=== PATIENT | female | born 1990 | race Caucasian/White ===

== ENCOUNTER 2017-08-28 07:49 | Emergency (ER) | payer OTHER ==
[~2017-08-28] VITALS: Ht 160 cm; Wt 72.6 kg
--- NOTE | 2017-08-28 08:03 | Emergency Room Report ---
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 N Clinical Suspician of Infection? N Mental Status: 1 - Regular (Normal Baseline) Sepsis Risk:Low Sepsis Risk Have you (or family members/close friends) recently traveled outside the [place]? N If Yes, where/when: Have you had exposure to infectious disease within the past month? TB? Other? Specify: Comment The patient complains of LEFT sided pleuritic chest pain. She says that on Sunday she woke up with a soreness in her LEFT neck and trapezius area which has now progressed to pain in her inframammary and periscapular area on that side, increasing with a deep breath. Her neck pain has resolved. She denies cough or fever. No hemoptysis or sputum production. She had LEFT calf pain last week for about 5 days which is now resolved. No swelling. She is on control pills, no other medications. No recent surgery, hospitalization, or travel. She has taken low dose aspirin and ibuprofen, which seemed to help some. ALLERGIES Coded Allergies: No Known Allergies (08/28/17) Home Medications Reported Medications NORETHINDRONE-E.ESTRADIOL-IRON ([place]arrison Fe 1-20 Tablet) 1 TAB PO DAILY #28 History Medical History General Hypertension? No More? 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 Social History Smoking Hx Smoker: Never Smoker Tobacco: No Type N/A Are you/the child exposed to second-hand smoke: No Alcohol Alcohol: No Review of Systems All Other Systems Reviewed and Negative Constitutional denies fever Respiratory denies cough Cardiovascular chest pain Musculoskeletal see HPI Physical Exam Vital Signs Vital Signs Date Time Temp Pulse Resp B/P Pulse O2 O2 Flow FiO2 Ox Delivery Rate 08/28 0756 97.1 96 16 151/71 97 General Appearance normal appearance, WD/WN Eye Exam - bilateral eye normal exam, bilateral eye PERRL, bilateral eye EOMI Ear, Nose, Throat hearing grossly normal, normal ENT inspection Neck normal inspection, non-tender, supple, full range of motion Respiratory Status Yes: trachea midline, chest symmetrical, non tender chest. No: respiratory distress. Lung Sounds bilateral: normal breath sounds, lungs clear. Cardiovascular normal exam, regular rate/rhythm, no peripheral edema, no gallop, no JVD, no murmur, no rub, normal peripheral pulses Peripheral Pulses Pulses normal Yes Gastrointestinal normal bowel sounds, normal exam, non tender, soft, no organomegaly Extremities non-tender, normal range of motion, normal inspection, no calf tenderness, no pedal edema Neurologic alert, normal exam, oriented x 3 Mental status normal mood/affect Skin intact, normal color, warm/dry Medical Decision Making LABS/Meds/Orders Pt receiving controlled substance in ED? No Results/Orders Laboratory Tests 08/28/17 0820: Sodium 139, Potassium 4.0, Chloride 105, Carbon Dioxide 24, BUN 7, Creatinine 0.7, Estimated Creat Clear 137, Estimated GFR (MDRD) 100, Glucose 96, Calcium 8.6, Total Bilirubin 0.6, AST 28, ALT 32, Alkaline Phosphatase 65, Troponin I < 0.02, Total Protein 7.4, Albumin 3.1 L, Globulin 4.3 H, Albumin/Globulin Ratio 0.7 L, D-Dimer 2080 *H, WBC 12.9 H, RBC 4.21, Hgb 12.6, Hct 37.7, MCV 89.6, RDW 12.6, Plt Count 283, MPV 8.3, Gran % 75.6, Gran # 9.7 H, Lymphocytes % 18.6 , Monocytes % 4.1, Eosinophils % 1.4, Basophils % 0.3, Lymphocytes # 2.4, Monocytes # 0.5, Eosinophils # 0.2, Basophils # 0.0, PUBS MCHC 33.4, MCH 29.9 Current Medication Orders Sig/Debbie Start time Last Medication Dose Route Stop Time Status Admin Iopamidol 75 ML ONCE ONE 08/28 915 DC 08/28 IV 08/28 Sodium Chloride 10 ML ONCE ONE 08/28 915 DC 08/28 IV 08/28 916 0912 Sodium Chloride 10 ML PRN PRN 08/28 08 AC IV 08/29 08 Orders Procedure Date/time Status DIET-NOTHING BY MOUTH 08/[address] CHEST W/PE PROTOCOL REQ 08/28 837 Active VENOUS LOWER EXT LT 08/28 836 Active SERUM , QUAL 08/28 834 Complete ELECTROCARDIOGRAM REQUEST 08/28 800 Active IV SALINE LOCK 08/28 800 Active URINALYSIS/COMPLETE 08/28 800 Active TROPONIN I 08/28 800 Complete D-DIMER 08/28 800 Complete CBC WITH AUTO DIFF 08/28 800 Complete CHEM 12 PROFILE 08/28 800 Complete CM/EKG CM/EKG Comments EKG interpreted by Mert Mattson MD: Rhythm: sinus Rate: 85 Mccloud: normal Ectopy: none Conduction: normal ST Segment Changes: none T Wave Changes: none Q Waves: none No evidence of acute ischemia or injury XRAY/CT/US XRAY/CT/US XRAY chest Comment X-ray interpreted by Mert Mattson M.D.: Mild airspace disease LEFT base CT chest Comment CT scan interpreted by radiologist: Negative for pulmonary embolism. Atelectasis LEFT base with trace pleural fluid. Ultrasound lower extremity Comment As per [facility] procedure, ultrasound report received from data acquisition technician: Negative for DVT Departure Departure Disposition DC Home or Self Care(routine) Clinical Impression Primary Impression: Pleurisy with effusion Condition STABLE Patient Instructions DI for Pleurisy Additional Instructions Continue ibuprofen, 600 mg every 6-8 hours. Follow-up with your primary care provider, call today to arrange follow-up appointment in 2-3 days. ED Critical Care Critical Care No
--- NOTE | 2017-08-28 08:03 | Emergency Room Report ---
History of Present Illness Time Seen by MD Simental Presenting Problem in Triage Pt arrived:Walked Presenting Problem:PT STATES SHE BEGAN BY HAVING LEG PAIN IN HER LEFT LEG FOR APPROX 4-5 DAYS AND NOW HAS HAD LEFT SIDE PAIN WITH INSPIRATION SINCE YESTERDAY MORNING PT FURTHER STATES SHE IS SEDENTARY FOR THE MOST PART DUE TO HER 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 N Clinical Suspician of Infection? N Mental Status: 1 - Regular (Normal Baseline) Sepsis Risk:Low Sepsis Risk Have you (or family members/close friends) recently traveled outside the [place]? N If Yes, where/when: Have you had exposure to infectious disease within the past month? TB? Other? Specify: Comment The patient complains of LEFT sided pleuritic chest pain. She says that on Sunday she woke up with a soreness in her LEFT neck and trapezius area which has now progressed to pain in her inframammary and periscapular area on that side, increasing with a deep breath. Her neck pain has resolved. She denies cough or fever. No hemoptysis or sputum production. She had LEFT calf pain last week for about 5 days which is now resolved. No swelling. She is on control pills, no other medications. No recent surgery, hospitalization, or travel. She has taken low dose aspirin and ibuprofen, which seemed to help some. ALLERGIES Coded Allergies: No Known Allergies (08/28/17) Home Medications Reported Medications NORETHINDRONE-E.ESTRADIOL-IRON ([place]arrison Fe 1-20 Tablet) 1 TAB PO DAILY #28 History Medical History General Hypertension? No More? 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 Social History Smoking Hx Smoker: Never Smoker Tobacco: No Type N/A Are you/the child exposed to second-hand smoke: No Alcohol Alcohol: No Review of Systems All Other Systems Reviewed and Negative Constitutional denies fever Respiratory denies cough Cardiovascular chest pain Musculoskeletal see HPI Physical Exam Vital Signs Vital Signs Date Time Temp Pulse Resp B/P Pulse O2 O2 Flow FiO2 Ox Delivery Rate 08/28 0756 97.1 96 16 151/71 97 General Appearance normal appearance, WD/WN Eye Exam - bilateral eye normal exam, bilateral eye PERRL, bilateral eye EOMI Ear, Nose, Throat hearing grossly normal, normal ENT inspection Neck normal inspection, non-tender, supple, full range of motion Respiratory Status Yes: trachea midline, chest symmetrical, non tender chest. No: respiratory distress. Lung Sounds bilateral: normal breath sounds, lungs clear. Cardiovascular normal exam, regular rate/rhythm, no peripheral edema, no gallop, no JVD, no murmur, no rub, normal peripheral pulses Peripheral Pulses Pulses normal Yes Gastrointestinal normal bowel sounds, normal exam, non tender, soft, no organomegaly Extremities non-tender, normal range of motion, normal inspection, no calf tenderness, no pedal edema Neurologic alert, normal exam, oriented x 3 Mental status normal mood/affect Skin intact, normal color, warm/dry Medical Decision Making LABS/Meds/Orders Pt receiving controlled substance in ED? No Results/Orders Laboratory Tests 08/28/17 0820: Sodium 139, Potassium 4.0, Chloride 105, Carbon Dioxide 24, BUN 7, Creatinine 0.7, Estimated Creat Clear 137, Estimated GFR (MDRD) 100, Glucose 96, Calcium 8.6, Total Bilirubin 0.6, AST 28, ALT 32, Alkaline Phosphatase 65, Troponin I < 0.02, Total Protein 7.4, Albumin 3.1 L, Globulin 4.3 H, Albumin/Globulin Ratio 0.7 L, D-Dimer 2080 *H, WBC 12.9 H, RBC 4.21, Hgb 12.6, Hct 37.7, MCV 89.6, RDW 12.6, Plt Count 283, MPV 8.3, Gran % 75.6, Gran # 9.7 H, Lymphocytes % 18.6 , Monocytes % 4.1, Eosinophils % 1.4, Basophils % 0.3, Lymphocytes # 2.4, Monocytes # 0.5, Eosinophils # 0.2, Basophils # 0.0, PUBS MCHC 33.4, MCH 29.9 Current Medication Orders Sig/Debbie Start time Last Medication Dose Route Stop Time Status Admin Iopamidol 75 ML ONCE ONE 08/28 915 DC 08/28 IV 08/28 Sodium Chloride 10 ML ONCE ONE 08/28 915 DC 08/28 IV 08/28 916 0912 Sodium Chloride 10 ML PRN PRN 08/28 08 AC IV 08/29 08 Orders Procedure Date/time Status DIET-NOTHING BY MOUTH 08/[address] CHEST W/PE PROTOCOL REQ 08/28 837 Active VENOUS LOWER EXT LT 08/28 836 Active SERUM , QUAL 08/28 834 Complete ELECTROCARDIOGRAM REQUEST 08/28 800 Active IV SALINE LOCK 08/28 800 Active URINALYSIS/COMPLETE 08/28 800 Active TROPONIN I 08/28 800 Complete D-DIMER 08/28 800 Complete CBC WITH AUTO DIFF 08/28 800 Complete CHEM 12 PROFILE 08/28 800 Complete CM/EKG CM/EKG Comments EKG interpreted by Mert Mattson MD: Rhythm: sinus Rate: 85 Jones: normal Ectopy: none Conduction: normal ST Segment Changes: none T Wave Changes: none Q Waves: none No evidence of acute ischemia or injury XRAY/CT/US XRAY/CT/US XRAY chest Comment X-ray interpreted by Mert Mattson M.D.: Mild airspace disease LEFT base CT chest Comment CT scan interpreted by radiologist: Negative for pulmonary embolism. Atelectasis LEFT base with trace pleural fluid. Ultrasound lower extremity Comment As per [facility] procedure, ultrasound report received from manufacturing process technician: Negative for DVT Departure Departure Disposition DC Home or Self Care(routine) Clinical Impression Primary Impression: Pleurisy with effusion Condition STABLE Patient Instructions DI for Pleurisy Additional Instructions Continue ibuprofen, 600 mg every 6-8 hours. Follow-up with your primary care provider, call today to arrange follow-up appointment in 2-3 days. ED Critical Care Critical Care No
[2017-08-28] MEDS ORDERED: LARIN FE PO (08:19)
--- OUTSIDE RECORDS SUMMARY | 2017-08-28 08:19 | External Medical Summary Rpt | CCD ---
Demographics Home Phone Preferred Language Scottish Marital Status Unknown Nondenominational Affiliation Unknown Race Unknown Ethnic Group Unknown Author Author KATEY Address Unknown Phone [email or web address] Purpose Continuity of Care Document - 03-31-2014 through 2016
--- OUTSIDE RECORDS SUMMARY | 2017-08-28 08:19 | External Medical Summary Rpt | CCD ---
Author Author [employer] Organization [employer] Address Unknown Phone Unavailable Purpose Continuity of Care Document - through 2016
--- OUTSIDE RECORDS SUMMARY | 2017-08-28 08:19 | External Medical Summary Rpt | CCD ---
Demographics Preferred Language Yoruba Marital Status Unknown Quaker Affiliation Unknown Race Unknown Ethnic Group Unknown Author Author , KATEY DEL TORO Address Unknown Phone Immunization No patient found.
--- OUTSIDE RECORDS SUMMARY | 2017-08-28 08:19 | External Medical Summary Rpt | CCD ---
Demographics Preferred Language Urdu Marital Status Unknown Taoism Affiliation Unknown Race Unknown Ethnic Group Unknown Author Author , KATEY DEL TORO Address Unknown Phone Immunization No patient found.
--- OUTSIDE RECORDS SUMMARY | 2017-08-28 08:19 | External Medical Summary Rpt | CCD ---
Demographics Home Phone Preferred Language Libyan Marital Status Unknown Cheondoism Affiliation Unknown Race Unknown Ethnic Group Unknown Author Author KATEY Address Unknown Phone [email or web address] Purpose Continuity of Care Document - 03-31-2014 through 2016
--- OUTSIDE RECORDS SUMMARY | 2017-08-28 08:20 | External Medical Summary Rpt ---
Author Author [employer] Ha[employer], [employer] Organization [employer] Address Unknown Phone Unavailable Results Gluc 2Hr Observa Value Referen Units Interpr Notes Date ti ce etation Range Gluc 2 90 No mg/dL No Referen Jun 01 Hour informa informa 2013 tion in tion in Range:\ 3:33 PM source source .br\\.b data data r\ Pregnan t (IADPSG /ADA)\. br\< 153 mg/dL\. br\\.br \Non-pr egnant\ .br\ < 140 mg/dL Normal\ .br\140 - 199 mg/dL Impaire d Glucose Toleran ce\.br\ >= 200 mg/dL Suggest tameka of Diabete s Gluc 1Hr Observa Value Referen Units Interpr Notes Date ti ce etation Range Gluc 1 143 No mg/dL No Referen Jun 01 Hour informa informa ce 2013 tion in tion in Range:\ 3:49 PM source source .br\\.b data data r\Pregn ant (IADPSG /ADA)\. br\ < 180 mg/dL\. br\\.br \Non-pr egnant\ .br\ N/A Gluc Base Observa Value Referen Units Interpr Notes Date ti ce etation Range Gluc 76 74 - mg/dL No Referen Jun 01 Baselin 100 informa ce 2013 e tion in Range:\ 12:23 source .br\\.b PM data r\Pregn ant (IADPSG /ADA)\. br\ < 92 mg/dL\. br\\.br \Non-pr egnant\ .br\ < 100 mg/dL Normal\ .br\110 - 125 mg/dL Impaire d Fasting Glucose \.br\ >= 126 mg/dL Suggest tame[place] of Diabete s Auto Diff Observa Value Referen Units Interpr Notes Date ti ce etation Range Neutrop 71.4 No % No No Apr 10 hils informa informa informa 2013 [#/volu tion in tion in tion in 6:30 AM me] in source source source Blood data data data by Automat ed count Lymphoc 19.7 No % No No Naseem 10 ytes informa informa informa 2013 [#/volu tion in tion in tion in 6:30 AM me] in source source source Blood data data data by Automat ed count Monocyt 6.9 No % No No Naseem 10 es informa informa informa 2013 [#/volu tion in tion in tion in 6:30 AM me] in source source source Blood data data data by Automat ed count Eos 1.2 No % No No Naseem 10 Percent informa informa informa 2013 tion in tion in tion in 6:30 AM source source source data data data Baso 0.8 No % No No Naseem 10 Percent informa informa informa 2013 tion in tion in tion in 6:30 AM source source source data data data Neut# 7.5 1.8 - x10(3)/ No No Naseem 10 7.7 mcL informa informa 2013 tion in tion in 6:30 AM source source data data Lymph# 2.1 0.6 - x10(3)/ No No Naseem 10 4.8 mcL informa informa 2013 tion in tion in 6:30 AM source source data data [place]# 0.7 0.0 - x10(3)/ No No Naseem 10 1.3 mcL informa informa 2013 tion in tion in 6:30 AM source source data data Eos# 0.1 0.0 - x10(3)/ No No Naseem 10 0.5 mcL informa informa 2013 tion in tion in 6:30 AM source source data data Baso# 0.1 0.0 - x10(3)/ No No Naseem 10 0.2 mcL informa informa 2013 tion in tion in 6:30 AM source source data data CBC Observa Value Referen Units Interpr Notes Date tion ce etation Range LEUKOCY 10.5 4.0 - x10(3)/ No No Naseem 10 CARLOS 11.0 mcL informa informa 2013 tion in tion in 6:30 AM source source data data Erythro 4.13 3.80 - x10(6)/ No No Naseem 10 cytes 5.10 mcL informa informa 2013 [#/volu tion in tion in 6:30 AM me] in source source Blood data data by Automat ed count Hemoglo 12.7 12.0 - gm/dL No No Apr 21 bin 15.6 informa informa 2014 [Mass/v tion in tion in 6:30 AM olume] source source in data data Blood Hematoc 37.3 35.7 - % No No Apr 21 rit 45.9 informa informa 2014 [Volume tion in tion in 6:30 AM source source Fractio data data n] of Blood by Automat ed count Erythro 90.4 82.5 - fL No No Apr 21 cyte 99.8 informa informa 2014 mean tion in tion in 6:30 AM corpusc source source ular data data volume [Entiti c volume] by Automat ed count Erythro 30.7 27.0 - pg No No Apr 21 cyte 34.3 informa informa 2014 mean tion in tion in 6:30 AM corpusc source source ular data data hemoglo bin [Entiti c mass] by Automat ed count Erythro 33.9 32.1 - gm/dL No No Apr 21 cyte 35.3 informa informa 2014 mean tion in tion in 6:30 AM corpusc source source ular data data hemoglo bin concent ration [Mass/v olume] by Automat ed count Erythro 13.9 11.5 - % No No Apr 21 cyte 15.0 informa informa 2014 distrib tion in tion in 6:30 AM ution source source width data data [Ratio] by Automat ed count Platele 191 144 - x10(3)/ No No Apr 21 ts 423 mcL informa informa 2013 [#/volu tion in tion in 6:30 AM me] in source source Blood data data by Automat ed count MPV 9.5 6.8 - fL No No Apr 21 10.8 informa informa 2014 tion in tion in 6:30 AM source source data data ABSC IgG Observa Value Referen Units Interpr Notes Date tion ce etation Range ABSC Negativ No No No No Apr 20 IgG Int e informa informa informa informa 2014 tion in tion in tion in tion in 8:19 AM source source source source data data data data ABORh Observa Value Referen Units Interpr Notes Date tion ce etation Range ABORh A POS No No No No Apr 9 Int informa informa informa informa 2014 tion in tion in tion in tion in 8:19 AM source source source source data data data data BMP Observa Value Referen Units Interpr Notes Date tion ce etation Range Sodium 137 136 - mmol/L No No Apr 20 145 informa informa 2013 tion in tion in 7:51 AM source source data data Potassi 3.8 3.5 - mmol/L No No Apr 20 um 5.0 informa informa 2013 [Moles/ tion in tion in 7:51 AM volume] source source in data data Serum or Plasma Chlorid 106 98 - mmol/L No No Apr 20 e 107 informa informa 2013 tion in tion in 7:51 AM source source data data Carbon 21 22 - 29 mmol/L Low No Apr 20 dioxide informa 2014 , total tion in 7:51 AM source [Moles/ data volume] in Serum or Plasma Anion 10 7 - 16 mmol/L No No Apr 9 Gap informa informa 2013 tion in tion in 7:51 AM source source data data CALCIUM 8.9 8.6 - mg/dL No No Apr 20 .TOTAL 10.2 informa informa 2013 tion in tion in 7:51 AM source source data data Glucose 79 74 - mg/dL No No Apr 20 Lvl 100 informa informa 2013 tion in tion in 7:51 AM source source data data BUN 6 6 - 20 mg/dL No No Apr 9 informa informa 2013 tion in tion in 7:51 AM source source data data Creatin 0.68 0.51 - mg/dL No No Apr 20 ine 1.00 informa informa 2013 tion in tion in 7:51 AM source source data data Auto Diff Observa Value Referen Units Interpr Notes Date tion ce etation Range Neutrop 75.6 No % No No Apr 9 hils informa informa informa 2013 [#/volu tion in tion in tion in 7:31 AM me] in source source source Blood data data data by Automat ed count Lymphoc 17.3 No % No No Naseem 9 ytes informa informa informa 2013 [#/volu tion in tion in tion in 7:31 AM me] in source source source Blood data data data by Automat ed count Monocyt 6.0 No % No No Naseem 9 es informa informa informa 2013 [#/volu tion in tion in tion in 7:31 AM me] in source source source Blood data data data by Automat ed count Eos 0.6 No % No No Naseem 9 Percent informa informa informa 2014 tion in tion in tion in 7:31 AM source source source data data data Baso 0.5 No % No No Naseem 9 Percent informa informa informa 2013 tion in tion in tion in 7:31 AM source source source data data data Neut# 7.6 1.8 - x10(3)/ No No Naseem 9 7.7 mcL informa informa 2013 tion in tion in 7:31 AM source source data data Lymph# 1.7 0.6 - x10(3)/ No No Naseem 9 4.8 mcL informa informa 2013 tion in tion in 7:31 AM source source data data [place]# 0.6 0.0 - x10(3)/ No No Naseem 9 1.3 mcL informa informa 2013 tion in tion in 7:31 AM source source data data Eos# 0.1 0.0 - x10(3)/ No No Naseem 9 0.5 mcL informa informa 2013 tion in tion in 7:31 AM source source data data Baso# 0.0 0.0 - x10(3)/ No No Naseem 9 0.2 mcL informa informa 2013 tion in tion in 7:31 AM source source data data CBC Observa Value Referen Units Interpr Notes Date tion ce etation Range LEUKOCY 10.0 4.0 - x10(3)/ No No Naseem 9 CARLOS 11.0 mcL informa informa 2013 tion in tion in 7:31 AM source source data data Erythro 3.71 3.80 - x10(6)/ Low No Naseem 9 cytes 5.10 mcL informa 2013 [#/volu tion in 7:31 AM me] in source Blood data by Automat ed count Hemoglo 11.4 12.0 - gm/dL Low No Naseem 9 bin 15.6 informa 2014 [Mass/v tion in 7:31 AM olume] source in data Blood Hematoc 33.5 35.7 - % Low No Naseem 9 rit 45.9 informa 2014 [Volume tion in 7:31 AM source Fractio data n] of Blood by Automat ed count Erythro 90.3 82.5 - fL No No Apr 9 cyte 99.8 informa informa 2014 mean tion in tion in 7:31 AM corpusc source source ular data data volume [Entiti c volume] by Automat ed count Erythro 30.7 27.0 - pg No No Apr 20 cyte 34.3 informa informa 2014 mean tion in tion in 7:31 AM corpusc source source ular data data hemoglo bin [Entiti c mass] by Automat ed count Erythro 34.0 32.1 - gm/dL No No Apr 20 cyte 35.3 informa informa 2014 mean tion in tion in 7:31 AM corpusc source source ular data data hemoglo bin concent ration [Mass/v olume] by Automat ed count Erythro 13.9 11.5 - % No No Apr 20 cyte 15.0 informa informa 2014 distrib tion in tion in 7:31 AM ution source source width data data [Ratio] by Automat ed count Platele 186 144 - x10(3)/ No No Naseem 9 ts 423 mcL informa informa 2014 [#/volu tion in tion in 7:31 AM me] in source source Blood data data by Automat ed count MPV 9.2 6.8 - fL No No Apr 9 10.8 informa informa 2014 tion in tion in 7:31 AM source source data data DOA Screen Observa Value Referen Units Interpr Notes Date tion ce etation Range Cannabi Absent 50 No No No Naseem 9 noid ng/mL informa informa informa 2014 Screen tion in tion in tion in 3:18 PM source source source data data data Benzodi Absent 200 No No No Naseem 9 azepine ng/mL informa informa informa 2014 s tion in tion in tion in 3:18 PM Screen source source source data data data Cocaine Absent 150 No No No Naseem 9 Screen ng/mL informa informa informa 2014 tion in tion in tion in 3:18 PM source source source data data data Opiate Absent 300 No No No Naseem 9 300 ng/mL informa informa informa 2014 Screen tion in tion in tion in 3:18 PM source source source data data data Barbitu Absent 200 No No No Naseem 9 rate ng/mL informa informa informa 2014 Screen tion in tion in tion in 3:18 PM source source source data data data Ampheta Absent 500 No No No Naseem 9 mine ng/mL informa informa informa 2014 Screen tion in tion in tion in 3:18 PM source source source data data data Phencyc Absent 25 No No No Naseem 9 lidine ng/mL informa informa informa 2014 Screen tion in tion in tion in 3:18 PM source source source data data data Methado Absent 300 No No No Naseem 9 ne ng/mL informa informa informa 2014 Screen tion in tion in tion in 3:18 PM source source source data data data Oxycodo Absent 100 No No No Naseem 9 ne ng/mL informa informa informa 2014 Screen tion in tion in tion in 3:18 PM source source source data data data 6 AM Absent 10 No No No Naseem 9 (Heroin ng/mL informa informa informa 2013 ) tion in tion in tion in 3:18 PM Screen source source source data data data Bupreno Absent 5 ng/mL No No No Naseem 9 rphine informa informa informa 2014 Screen tion in tion in tion in 3:18 PM source source source data data data Creatin 124.3 No mg/dL No \.br\Gr Naseem 9 ine Ur informa informa eater 2014 tion in tion in than 3:18 PM source source 20: data data Consist ent with valid sample\ .br\Gre ater than 2 but less than 20: Possibl e dilutio n\.br\L ess than 2: Questio nable valid sample Procedu These No No No No Naseem 9 re Note drug informa informa informa informa 2014 Screen classes tion in tion in tion in tion in 3:18 PM have source source source source been data data data data screene d by immunoa kj and are for medical purpose s only. The results should not be used for non-med ical purpose s. If confirm ation is desired , please place a separat e order for each drug confirm ation. Specime ns will be saved for 3 busines s days should additio nal orders/ testing be desired . GP B DNA Results Observa Value Referen Units Interpr Notes Date tion ce etation Range Does pt have a severe PCN allergy?->No Group B Genital No No No TEST April 02 informa informa informa INFORMA 2013 Strepto tion in tion in tion in TION: 1:03 PM coccus source source source This specime data data data qualita n tive assay utilize s molecul ar amplifi cation to detect a portion of the Strepto coccus agalact iae genome and is intende d for a screen of antepar radha women in 35-37 weeks gestati on. This assay utilize s the [employer] cande by [employer] and its perform ance has been verifie d by [facility] are Laborat or[facility]. A negativ e result does not rule out the presenc e the Group B Strep in concent rations below the limit of detecti on for the assay. Group B Negativ No No No No April 02 e informa informa informa informa 2013 Strepto tion in tion in tion in tion in 1:03 PM coccus source source source source DNA data data data data Group B Negativ No No No No April 02 e for informa informa informa informa 2013 Strepto Group B tion in tion in tion in tion in 1:03 PM coccus source source source source Interp Strepto data data data data coccus DNA by amplifi ed probe. A negativ e result does not rule out the presenc e of Group B Strepto coccus DNA in concent rations below the level of detecti on by the assay. Group B Negativ No No No No April 02 e informa informa informa informa 2013 Strepto tion in tion in tion in tion in 1:03 PM coccus source source source source Interp data data data data
--- OUTSIDE RECORDS SUMMARY | 2017-08-28 08:20 | External Medical Summary Rpt ---
[...] in 6:30 AM source source data data [place]# 0.7 0.0 - x10(3)/ No No Naseem [...] in 7:31 AM source source data data [place]# 0.6 0.0 - x10(3)/ No No Naseem [...] assay utilize s the [employer] cande [employer] and its perform ance has been verifie d by [facility] are Laborat ory. A negativ e [...]
[2017-08-28 08:32] LABS: HEMOGLOBIN 12.6 g/dL (12.2-16.2); LYMPH # 2.4 K/mm3 (0.7-4.5); LYMPH % 18.6 % (10-50.0)
[2017-08-28 08:46] LABS: BUN 7 mg/dL (7-18); GFR (ESTIMATED) 100 ML/MIN (59-)
--- NOTE | 2017-08-28 09:37 | RADIOLOGY REPORT PS360 ---
CTA-CHEST HISTORY: Left-sided pleuritic chest pain PLEURITIC CHEST PAIN ORDERING PHYSICIAN: Mert Mattson MD PATIENT AGE: 26 years TECHNIQUE: Helical acquisition obtained following the bolus administration of 60 mL of Isovue 370 followed by a saline bolus. Axial, sagittal, and coronal reformatted images are generated and reviewed. COMPARISON: None FINDINGS: PULMONARY ARTERIES:No pulmonary embolus evident. AORTA:No acute finding. No thoracic aortic aneurysm or dissection evident LUNGS:Atelectatic changes are present in the left lung base with trace left effusion. PLEURAL SPACES:No significant effusion. No evidence of pneumothorax. HEART:Unremarkable. Normal heart size. No significant pericardial effusion. MEDIASTINAL AND HILAR STRUCTURES:No mediastinal or hilar mass evident. No dominant adenopathy. BONY STRUCTURES:No acute bony abnormalities apparent LYMPH NODES:No enlarged lymph nodes evident UPPER ABDOMEN:Unremarkable IMPRESSION: 1. No evidence of pulmonary embolus or aortic aneurysm or dissection. 2. Left lower lobe atelectasis with trace left pleural effusion
--- NOTE | 2017-08-28 09:40 | RADIOLOGY REPORT PS360 ---
CHEST(2 VIEWS-NOT PORTABLE) HISTORY: CP ORDERING PHYSICIAN: Mert Mattson MD PATIENT AGE: 26 years COMPARISON: None available FINDINGS: The cardiomediastinal silhouette and pulmonary vascularity are within normal limits. Mild left lower lobe atelectasis.. No acute bony abnormalities. IMPRESSION: Left lower lobe atelectasis
[2017-08-28 10:09] VITALS: BP 143/65
--- NOTE | 2017-08-28 10:13 | CARDIOVASCULAR REPORT ---
"Venous Exam Indications: 729.5 Pain in limb. IMPRESSIONS 1. There is no evidence of significant Reflux. 2. No evidence of deep or superficial vein thrombosis involving the left lower extremity History: Dyspnea. Left lower extremity venous duplex evaluation. Doppler flow study including spectral analysis, color and romeo scale imaging. Location: Vascular laboratory. Patient status: Emergency department. Tables: Venous flow and imaging: + +-------+ + |Location |Overall|Flow properties | + +-------+ + |Left common femoral |Patent |Normal phasicity; spontaneous; | | | |normal augmentation; compressible | + +-------+ + |Left saphenofemoral junction|Patent |Compressible | + +-------+ + |Left profunda femoral |Patent |Compressible | + +-------+ + |Left femoral |Patent |Normal phasicity; spontaneous; | | | |normal augmentation; compressible | + +-------+ + |Left greater saphenous |Patent |Normal phasicity; spontaneous; | | | |normal augmentation; compressible | + +-------+ + |Left popliteal |Patent |Normal phasicity; spontaneous; | | | |normal augmentation; compressible | + +-------+ + |Left posterior tibial |Patent |Compressible | + +-------+ + |Left peroneal |Patent |Compressible | + +-------+ + |Left gastrocnemius |Patent |Compressible | + +-------+ + |Left soleal |Patent |Compressible | + +-------+ + (Report amended ) Electronically signed by: Sonido Chandra [id number]"
== END 2017-08-28 10:10 | disposition home or self-care (01) ==
LOC: ER 07:49
PROVIDERS: Emergency Medicine
DX: R09.1 Pleurisy (principal); Z79.3 Long term (current) use of hormonal contraceptives
CPT/HCPCS: Q9967